=== PATIENT | female | born 1940 | race Caucasian/White ===

== ENCOUNTER → 2019-04-26 | Outpatient (CLI) | payer MEDICARE, OTHER ==
[~2019-04-26] MED LIST: ALBUTEROL SULFATE 0.083% 2.5 MG/3 ML INH IH ONE
== END | disposition home or self-care (01) ==
LOC: RESP 12:53
PROVIDERS: ATTEND Internal Medicine
DX: J44.9 Chronic obstructive pulmonary disease, unspecified (principal); J45.909 Unspecified asthma, uncomplicated
CPT/HCPCS: 94060; 94727; 94729

== ENCOUNTER → 2020-05-16 | Outpatient (CLI) | payer OTHER | END | disposition home or self-care (01) | LOC: RAH 13:01 | PROVIDERS: ATTEND Family Medicine | DX: M79.605 Pain in left leg (principal); S80.02XD Contusion of left knee, subsequent encounter; X58.XXXD Exposure to other specified factors, subsequent encounter | CPT/HCPCS: 93971 ==

== ENCOUNTER 2021-04-10 08:19 | Day surgery (SDC) | payer OTHER ==
[2021-04-07 09:40] VITALS: BP 165/91
[2021-04-07 09:54] LABS: BASOPHILS % (AUTO) 0.8 % (0.0-5.0); EOSINOPHILS % (AUTO) 1.8 % (0.0-8.0); HEMATOCRIT 40.1 % (36-48); LYMPHOCYTES % (AUTO) 19.6 % (21.0-51.0); MEAN CORPUSCULAR HEMOGLOBIN 29.6 pg (27.0-33.0); MEAN CORPUSCULAR HGB CONC 32.2 g/dL (32.0-36.0); NEUTROPHILS % (AUTO) 64.6 % (40.0-77.0); PLATELET COUNT (AUTO) 250 K/uL (130-400); RED BLOOD CELL COUNT(AUTO) 4.36 MIL/uL (4.00-5.50); RED CELL DISTRIBUTION WIDTH 12.7 % (11.0-15.5); WHITE BLOOD COUNT (AUTO) 4.9 K/uL (4.8-10.8)
[2021-04-07 10:12] LABS: CREATININE 0.9 mg/dL (0.5-1.5); POTASSIUM 4.3 mmol/L (3.5-5.1)
[~2021-04-10] VITALS: Ht 160 cm; Wt 77.9 kg
[2021-04-10] VITALS (16 sets, daily range): BP systolic 133–210; BP diastolic 57–106
[~2021-04-10 08:19] MED LIST changes: -ALBUTEROL SULFATE 0.083% 2.5 MG/3 ML INH IH ONE; +CROM10DR2 OP; +FURO20TA4 PO; +HYDR25TA PO; +LEVO100T12 PO; +METO-408 PO; +MULT-1203 PO; +OLME40TA18 PO; +OMEP20CA12 PO; +SERT-439 PO
[2021-04-10] MEDS ORDERED: LACTATED RINGERS 1000ML 1,000 ML IV ONE (09:02)
[2021-04-10] MEDS: CEFAZOLIN SODIUM 1 GM VIAL ONE ×2 (10:10→12:15)
[2021-04-10] MEDS ORDERED: LIDOCAINE PF 100MG/5ML (2%) SYRINGE 5ML ONE (11:09)
[2021-04-10] MEDS ORDERED: ROCURONIUM 10MG/1ML SYR 10 MG/ML ML ONE (11:10)
[2021-04-10] MEDS ORDERED: ONDANSETRON 4MG INJ ONE (11:10)
[2021-04-10] MEDS ORDERED: PROPOFOL 10 MG/ML 20ML VIAL IV ONE (11:10)
[2021-04-10] MEDS ORDERED: FENTANYL CITRATE PF 50 MCG/1 ML 2ML VIAL ONE ×3 (11:10→13:14)
[2021-04-10] MEDS ORDERED: NEOSTIGMINE 5MG/5ML SYR IV ONE (13:06)
[2021-04-10] MEDS ORDERED: GLYCOPYRROLATE 1 MG/5 ML SYRINGE ONE (13:06)
[2021-04-10] MEDS ORDERED: KETOROLAC 30MG VIAL (30MG/ML) ONE (13:09)
[2021-04-10] MEDS ORDERED: ACET1TAB25 PO (13:27)
[2021-04-10] MEDS ORDERED: CEPH500B PO (13:27)
[2021-04-10] MEDS ORDERED: HYDRALAZINE 20MG/ML VIAL ONE (13:48)
[2021-04-10] MEDS ORDERED: MEPERIDINE-PF 25 MG/ML SYG ONE (13:58)
== END 2021-04-10 15:10 | disposition home or self-care (01) ==
LOC: DAH 08:19
PROVIDERS: ATTEND Orthopaedic Surgery
DX: S83.272A Complex tear of lateral meniscus, current injury, left knee, initial encounter (principal); Z20.822 Contact with and (suspected) exposure to COVID-19; S83.522A Sprain of posterior cruciate ligament of left knee, initial encounter; M22.42 Chondromalacia patellae, left knee; I10 Essential (primary) hypertension; J45.909 Unspecified asthma, uncomplicated; K21.9 Gastro-esophageal reflux disease without esophagitis; E07.9 Disorder of thyroid, unspecified; E66.01 Morbid (severe) obesity due to excess calories; Z90.710 Acquired absence of both cervix and uterus; Z98.890 Other specified postprocedural states; Z87.891 Personal history of nicotine dependence; Z79.890 Hormone replacement therapy
CPT/HCPCS: 29881; 36415; 80048; 85025; 87635; 93005; A4213; A4215; A4221; A4222; A4223; A4606; A4649 ×2; A4663; A4930 ×2; A5120; A6223; C9803; J0360; J0690; J1885; J2001; J2175; J2405; J2704; J2710; J3010 ×3; J3490; J7120 ×2

== ENCOUNTER → 2022-02-25 | Outpatient (CLI) | payer OTHER ==
[~2022-02-25] MED LIST changes: +ACET-2079 PO; +CEPH500B PO
== END | disposition home or self-care (01) ==
LOC: RAH 08:42
PROVIDERS: ATTEND Family Medicine
DX: M79.604 Pain in right leg (principal); R79.89 Other specified abnormal findings of blood chemistry
CPT/HCPCS: 93971

== ENCOUNTER 2022-03-18 14:27 | Emergency (ER) | payer OTHER ==
[~2022-03-18] VITALS: Ht 160 cm; Wt 79.4 kg
[2022-03-18 14:33] VITALS: BP 143/83
[2022-03-18] MEDS ORDERED: NAPR375T6 PO (15:50)
[2022-03-18] MEDS ORDERED: DICL20GE TP (15:50)
== END 2022-03-18 16:08 | disposition home or self-care (01) ==
LOC: EDH 14:27
DX: M17.11 Unilateral primary osteoarthritis, right knee (principal); I10 Essential (primary) hypertension; E03.9 Hypothyroidism, unspecified; Z79.899 Other long term (current) drug therapy; Z98.890 Other specified postprocedural states
CPT/HCPCS: 29505

== ENCOUNTER 2022-04-22 10:39 | Observation (INO) | payer OTHER ==
[2022-04-21 12:10] LABS: BASOPHILS % (AUTO) 0.8 % (0.0-5.0); HEMATOCRIT 40.6 % (36-48); LYMPHOCYTES % (AUTO) 13.4 % (21.0-51.0); MEAN CORPUSCULAR HEMOGLOBIN 29.5 pg (27.0-33.0); MEAN CORPUSCULAR HGB CONC 33.3 g/dL (32.0-36.0); MEAN CORPUSCULAR VOLUME 88.8 fL (79-99); MONOCYTES % (AUTO) 11.4 % (3.0-13.0); PLATELET COUNT (AUTO) 328 K/uL (130-400); RED BLOOD CELL COUNT(AUTO) 4.57 MIL/uL (4.00-5.50); RED CELL DISTRIBUTION WIDTH 12.9 % (11.0-15.5); WHITE BLOOD COUNT (AUTO) 7.8 K/uL (4.8-10.8)
[2022-04-21 12:17] LABS: APPEARANCE,URINE SL CLOUDY (CLEAR); BILIRUBIN,URINE NEGATIVE (NEGATIVE); COLOR,URINE YELLOW (YELLOW); GLUCOSE, URINE (UA) NEGATIVE (NEGATIVE); KETONES,URINE NEGATIVE (NEGATIVE); LEUKOCYTE ESTERASE ,URINE SMALL (NEGATIVE); NITRATE,URINE NEGATIVE (NEGATIVE); OCCULT BLOOD,URINE SMALL (NEGATIVE); PROTEIN,URINE NEGATIVE (NEGATIVE); UROBILINOGEN,URINE 0.2 mg/dL (0.2-1.0)
[2022-04-21 12:20] LABS: CREATININE 0.9 mg/dL (0.5-1.5)
[2022-04-21 12:21] LABS: INR 0.97 (0.85-1.15); PROTHROMBIN TIME 10.6 SEC (9.6-11.6)
[2022-04-21 12:22] LABS: BACTERIA,URINE Few /HPF (None Seen); SQUAMOUS EPITHELIAL CELL,UR Few /HPF (0-2); TRANSITIONAL EPI CELLS,URINE Few /HPF (None Seen); WBC,URINE 0-1 /HPF (0-1)
[2022-04-21 12:53] LABS: POTASSIUM 3.4 mmol/L (3.5-5.1)
[2022-04-21 13:22] VITALS: BP 145/85
[~2022-04-22] VITALS: Ht 160 cm; Wt 75.3 kg
[2022-04-22] VITALS (23 sets, daily range): BP systolic 120–167; BP diastolic 58–92
[~2022-04-22 10:39] MED LIST changes: -ACET-2079 PO; +CEFAZOLIN SODIUM 1 GM VIAL IVP SCH; -CEPH500B PO; -CROM10DR2 OP; +IBUP-2784 PO; +LACTATED RINGERS 1000ML 1,000 ML IV ONE; +TRAM50TA4 PO; +albuterol IH
[2022-04-22] MEDS ORDERED: CEFAZOLIN SODIUM 1 GM VIAL ONE (13:05)
[2022-04-22] MEDS ORDERED: FENTANYL CITRATE PF 50 MCG/1 ML 2ML VIAL ONE ×2 (13:18→13:28)
[2022-04-22] MEDS ORDERED: ONDANSETRON 4MG INJ ONE (13:18)
[2022-04-22] MEDS ORDERED: PROPOFOL 10 MG/ML 20ML VIAL IV ONE (13:18)
[2022-04-22] MEDS ORDERED: MIDAZOLAM HCL 1 MG/ML 2ML VIAL ONE (13:18)
[2022-04-22] MEDS ORDERED: ROCURONIUM 10MG/1ML SYR 10 MG/ML ML ONE (13:20)
[2022-04-22] MEDS ORDERED: ROPIVACAINE 0.5% 5MG/ML 30ML IJ ONE (13:29)
[2022-04-22] MEDS ORDERED: DEXAMETHASONE SOD PHOSPHATE 10MG/ML 1ML VIAL ONE (13:40)
[2022-04-22] MEDS ORDERED: EPHEDRINE SULFATE 50 MG/ML AMPULE ONE (13:53)
[2022-04-22] MEDS ORDERED: TRANEXAMIC ACID 1000MG/10ML ONE (14:33)
[2022-04-22] MEDS ORDERED: HYDRALAZINE 20MG/ML VIAL ONE (15:00)
[2022-04-22] MEDS ORDERED: ONDANSETRON 4MG INJ IVP PRN (16:00)
[2022-04-22] MEDS ORDERED: KCL 20 MEQ ERTAB PO PRN (16:00)
[2022-04-22] MEDS ORDERED: FERROUS FUMARATE 324 MG TABLET PO PRN (16:00)
[2022-04-22] MEDS ORDERED: KETOROLAC 15MG/ML VIAL (15MG/ML) IV PRN (16:00)
[2022-04-22] MEDS ORDERED: DiphenhydrAMINE HCL 50 MG/ML VIAL IVP PRN (16:00)
[2022-04-22] MEDS ORDERED: POTASSIUM CHLORIDE 20MEQ/100ML 100 ML IV PRN (16:00)
[2022-04-22] MEDS ORDERED: LIDOCAINE HCL-MPF 1% 2ML VIAL IV PRN (16:00)
[2022-04-22] MEDS ORDERED: CALCIUM CARB 500MG PO PRN (16:00)
[2022-04-22] MEDS ORDERED: POTASSIUM CHLORIDE 10% ELIXIR 20 MEQ/15 ML UDCUP PO PRN (16:00)
[2022-04-22] MEDS ORDERED: NEOSTIGMINE 5MG/5ML SYR IV ONE (16:07)
[2022-04-22] MEDS ORDERED: GLYCOPYRROLATE 1 MG/5 ML SYRINGE ONE (16:07)
[2022-04-22] MEDS: 0.9%NACL 1000ML 1,000 ML IV SCH ×2 (16:18→18:30)
[2022-04-22] MEDS ORDERED: MEPERIDINE-PF 25 MG/ML SYG ONE ×2 (16:24→16:59)
[2022-04-22] MEDS: OXYCODONE HCL 5 MG TAB PO PRN ×2 (18:11→23:38)
[2022-04-22] MEDS: ACETAMINOPHEN 500 MG TABLET PO SCH ×2 (18:16→23:38)
[2022-04-22] MEDS ORDERED: ALBUTEROL IH PRN (19:30)
[2022-04-22] MEDS: PHARMACY COMMUNICATION MISC SCH (20:00)
[2022-04-22] MEDS: CEFAZOLIN SODIUM 1 GM VIAL IVP SCH (20:38)
[2022-04-22] MEDS: CELECOXIB 200 MG CAP PO SCH (20:39)
[2022-04-22] MEDS: ASPIRIN 81 MG EC TAB PO SCH (20:39)
[2022-04-22] MEDS: FUROSEMIDE 20 MG TABLET PO SCH (21:00)
[2022-04-23] MEDS: 0.9%NACL 1000ML 1,000 ML IV SCH ×2 (00:41→12:00)
[2022-04-23] MEDS: PHARMACY COMMUNICATION MISC SCH ×7 (04:00→23:05)
[2022-04-23] MEDS ORDERED: LEVOTHYROXINE 100 MCG TABLET ONE (05:06)
[2022-04-23] MEDS: CEFAZOLIN SODIUM 1 GM VIAL IVP SCH (05:09)
[2022-04-23] MEDS: LEVOTHYROXINE 100 MCG TABLET PO SCH (05:33)
[2022-04-23 06:00] LABS: HEMATOCRIT 36.3 % (36-48); MEAN CORPUSCULAR HEMOGLOBIN 30.4 pg (27.0-33.0); MEAN CORPUSCULAR HGB CONC 33.3 g/dL (32.0-36.0); MEAN CORPUSCULAR VOLUME 91.2 fL (79-99); RED BLOOD CELL COUNT(AUTO) 3.98 MIL/uL (4.00-5.50); RED CELL DISTRIBUTION WIDTH 12.9 % (11.0-15.5); WHITE BLOOD COUNT (AUTO) 12.8 K/uL (4.8-10.8)
[2022-04-23 06:20] LABS: CREATININE 1.2 mg/dL (0.5-1.5); POTASSIUM 3.7 mmol/L (3.5-5.1)
[2022-04-23] MEDS: CELECOXIB 200 MG CAP PO SCH ×2 (08:14→20:16)
[2022-04-23] MEDS: PANTOPRAZOLE 40 MG TAB DR PO SCH (08:14)
[2022-04-23] MEDS: POLYETHYLENE GLYCOL 3350 17 GM POWD.PACK PO SCH (08:14)
[2022-04-23] MEDS: ASPIRIN 81 MG EC TAB PO SCH ×2 (08:14→20:16)
[2022-04-23] MEDS: OXYCODONE HCL 5 MG TAB PO PRN ×4 (08:14→20:16)
[2022-04-23] MEDS: SERTRALINE HCL 50 MG TABLET PO SCH (08:14)
[2022-04-23 08:36] VITALS: BP 137/58
[2022-04-23] MEDS: ACETAMINOPHEN 500 MG TABLET PO SCH ×3 (08:57→23:08)
[2022-04-23] MEDS: HYDROCHLOROTHIAZIDE 25 MG TABLET PO SCH (08:59)
[2022-04-23] MEDS: FUROSEMIDE 20 MG TABLET PO SCH ×2 (09:00→20:15)
[2022-04-23] MEDS: TRAMADOL HCL 50 MG TABLET PO PRN (10:28)
[2022-04-23] MEDS: Olmesartan Medoxomil 40 MG PO SCH (12:00)
[2022-04-23 12:14] VITALS: BP 116/56
[2022-04-23 15:41] VITALS: BP 107/62
[2022-04-23] MEDS: METOPROLOL SUCCINATE 25 MG TAB.SR.24H PO SCH (16:26)
[2022-04-23 21:03] VITALS: BP 135/66
[2022-04-23 23:14] VITALS: BP 133/66
[2022-04-24] MEDS: PHARMACY COMMUNICATION MISC SCH ×5 (00:30→05:18)
[2022-04-24] MEDS: OXYCODONE HCL 5 MG TAB PO PRN ×3 (03:00→13:50)
[2022-04-24 04:33] VITALS: BP 168/80
[2022-04-24] MEDS: LEVOTHYROXINE 100 MCG TABLET PO SCH (05:16)
[2022-04-24] MEDS: HYDROCHLOROTHIAZIDE 25 MG TABLET PO SCH (07:28)
[2022-04-24] MEDS: POLYETHYLENE GLYCOL 3350 17 GM POWD.PACK PO SCH (07:28)
[2022-04-24] MEDS: ASPIRIN 81 MG EC TAB PO SCH (07:28)
[2022-04-24 08:10] VITALS: BP 132/73
[2022-04-24] MEDS: PANTOPRAZOLE 40 MG TAB DR PO SCH (10:12)
[2022-04-24] MEDS: FUROSEMIDE 20 MG TABLET PO SCH (10:12)
[2022-04-24] MEDS: CELECOXIB 200 MG CAP PO SCH (10:12)
[2022-04-24] MEDS: ACETAMINOPHEN 500 MG TABLET PO SCH (10:22)
[2022-04-24 12:00] VITALS: BP 146/71
[2022-04-24] MEDS: Olmesartan Medoxomil 40 MG PO SCH (12:00)
[2022-04-24] MEDS: METOPROLOL SUCCINATE 25 MG TAB.SR.24H PO SCH (12:25)
[2022-04-24] MEDS: SERTRALINE HCL 50 MG TABLET PO SCH (12:25)
[2022-04-24] MEDS: TRAMADOL HCL 50 MG TABLET PO PRN (12:26)
[2022-04-24] MEDS ORDERED: HYDR-4060 PO (14:30)
[2022-04-24] MEDS ORDERED: AEC81 PO (14:30)
[2022-04-24] MEDS ORDERED: BISACODYL 10 MG SUPP.RECT RC ONE (14:56)
[2022-04-25] MEDS ORDERED: BISACODYL 10 MG SUPP.RECT RC PRN (16:00)
== END 2022-04-24 15:25 | disposition home health service (06) ==
LOC: DAH 10:39 → DAHIP 10:40 → 4BH 17:57
PROVIDERS: ADMIT Orthopaedic Surgery; ATTEND Orthopaedic Surgery
DX: M17.11 Unilateral primary osteoarthritis, right knee (principal); Z20.822 Contact with and (suspected) exposure to COVID-19; I10 Essential (primary) hypertension; K21.9 Gastro-esophageal reflux disease without esophagitis; E03.9 Hypothyroidism, unspecified; M25.561 Pain in right knee; G89.29 Other chronic pain; R26.89 Other abnormalities of gait and mobility; Z87.891 Personal history of nicotine dependence; Z90.710 Acquired absence of both cervix and uterus; Z79.82 Long term (current) use of aspirin; Z91.81 History of falling; Z79.899 Other long term (current) drug therapy; Z98.890 Other specified postprocedural states
CPT/HCPCS: 80048 ×2; 85025; 85610; 87088; 87426; 81001; 36415 ×2; 93005; 87641; 27447; 96374; 76942; 64447; 96376; 96375; 85027; 97161; 97039 ×4; 97116 ×4; 97530 ×4; G0378 ×43; A4663; J7030; J7120 ×2; J3010 ×2; J0690 ×3; J3490 ×3; J1100; J2710; J0360; J2250; J2704; J2405; J2175 ×2; J2795; A9272; A4649 ×4; A4930; C1776; A4215; A4223; A4222; A4221; J1885

== ENCOUNTER → 2022-12-28 | Outpatient (CLI) | payer OTHER ==
[~2022-12-28] MED LIST changes: +AEC81 PO; -CEFAZOLIN SODIUM 1 GM VIAL IVP SCH; +HYDR-4060 PO; -IBUP-2784 PO; -LACTATED RINGERS 1000ML 1,000 ML IV ONE; -TRAM50TA4 PO
== END | disposition home or self-care (01) ==
LOC: RAH 14:20
PROVIDERS: ATTEND Orthopaedic Surgery
DX: M17.12 Unilateral primary osteoarthritis, left knee (principal); M85.88 Other specified disorders of bone density and structure, other site; M25.462 Effusion, left knee
CPT/HCPCS: 73700

== ENCOUNTER 2023-02-16 06:02 | Observation (INO) | payer OTHER ==
[2023-02-10 11:54] LABS: INR 0.94 (0.85-1.15); PROTHROMBIN TIME 10.3 SEC (9.6-11.6)
[~2023-02-16] VITALS: Ht 160 cm; Wt 69.6 kg
[2023-02-16] VITALS (29 sets, daily range): BP systolic 114–157; BP diastolic 49–81
[~2023-02-16 06:02] MED LIST changes: -AEC81 PO; -HYDR-4060 PO
[2023-02-16] MEDS ORDERED: CEFAZOLIN SODIUM 2 GM VIAL ONE (06:54)
[2023-02-16] MEDS ORDERED: LACTATED RINGERS 1000ML 1,000 ML IV ONE (06:55)
[2023-02-16] MEDS ORDERED: LIDOCAINE PF 100MG/5ML (2%) SYRINGE 5ML ONE (08:15)
[2023-02-16] MEDS ORDERED: PROPOFOL 10 MG/ML 20ML VIAL IV ONE (08:15)
[2023-02-16] MEDS ORDERED: SUCCINYLCHOLINE CHLORIDE 20 MG/ML 10 ML VIAL ONE (08:15)
[2023-02-16] MEDS ORDERED: ONDANSETRON 4MG INJ ONE (08:15)
[2023-02-16] MEDS ORDERED: NEOSTIGMINE 5MG/5ML SYR IV ONE (08:15)
[2023-02-16] MEDS ORDERED: MIDAZOLAM HCL 1 MG/ML 2ML VIAL ONE (08:15)
[2023-02-16] MEDS ORDERED: GLYCOPYRROLATE 1 MG/5 ML SYRINGE ONE (08:15)
[2023-02-16] MEDS ORDERED: ROCURONIUM 10MG/1ML SYR 10 MG/ML ML ONE (08:15)
[2023-02-16] MEDS ORDERED: DEXAMETHASONE SOD PHOSPHATE 10MG/ML 1ML VIAL ONE (08:15)
[2023-02-16] MEDS ORDERED: FENTANYL CITRATE PF 50 MCG/1 ML 2ML VIAL ONE (08:15)
[2023-02-16] MEDS ORDERED: HYDROCODONE/ACETAMINOPHEN 10/325 MG TAB PO PRN (09:30)
[2023-02-16] MEDS ORDERED: POTASSIUM CHLORIDE 10% ELIXIR 20 MEQ/15 ML UDCUP PO PRN (09:30)
[2023-02-16] MEDS ORDERED: POTASSIUM CHLORIDE 20MEQ/100ML 100 ML IV PRN (09:30)
[2023-02-16] MEDS: 0.9%NACL 1000ML 1,000 ML IV SCH ×2 (09:30→19:30)
[2023-02-16] MEDS ORDERED: ONDANSETRON 4MG INJ IVP PRN (09:30)
[2023-02-16] MEDS ORDERED: ALBUTEROL INHALER 90MCG/INH IH PRN (09:30)
[2023-02-16] MEDS ORDERED: MORPHINE 4 MG SYG IVP PRN (09:30)
[2023-02-16] MEDS ORDERED: TRANEXAMIC ACID 1000MG/10ML ONE (09:37)
[2023-02-16] MEDS ORDERED: KETOROLAC 30MG VIAL (30MG/ML) ONE (11:23)
[2023-02-16] MEDS: ACETAMINOPHEN 1,000 MG/100 ML VIAL IV SCH ×3 (11:49→20:02)
[2023-02-16] MEDS: METOPROLOL SUCCINATE 25 MG TAB.SR.24H PO SCH (12:00)
[2023-02-16] MEDS: TRAMADOL HCL 50 MG TABLET PO SCH ×3 (12:00→23:55)
[2023-02-16] MEDS: LOSARTAN 100 MG TABLET PO SCH (12:00)
[2023-02-16] MEDS: FUROSEMIDE 20 MG TABLET PO SCH ×2 (12:00→17:00)
[2023-02-16] MEDS ORDERED: MEPERIDINE-PF 25 MG/ML SYG ONE (12:08)
[2023-02-16] MEDS: IBUPROFEN 800MG + NS 250ML IV SCH ×2 (13:38→20:02)
[2023-02-16] MEDS: CEFAZOLIN SODIUM 1 GM VIAL IVPB SCH ×2 (16:59→20:02)
[2023-02-16] MEDS ORDERED: BENZOCAINE/MENTH/CETYLPYRD CL 1 EACH LOZENGE MM PRN (17:00)
[2023-02-17] VITALS: BP 114/58
[2023-02-17 04:00] VITALS: BP 149/84
[2023-02-17 05:05] LABS: HEMATOCRIT 32.1 % (36-48); MEAN CORPUSCULAR HEMOGLOBIN 31.3 pg (27.0-33.0); MEAN CORPUSCULAR HGB CONC 32.7 g/dL (32.0-36.0); MEAN CORPUSCULAR VOLUME 95.8 fL (79-99); RED BLOOD CELL COUNT(AUTO) 3.35 MIL/uL (4.00-5.50); RED CELL DISTRIBUTION WIDTH 12.7 % (11.0-15.5); WHITE BLOOD COUNT (AUTO) 5.5 K/uL (4.8-10.8)
[2023-02-17 05:17] LABS: CREATININE 1.2 mg/dL (0.5-1.5); POTASSIUM 3.2 mmol/L (3.5-5.1)
[2023-02-17] MEDS: IBUPROFEN 800MG + NS 250ML IV SCH (05:17)
[2023-02-17] MEDS: TRAMADOL HCL 50 MG TABLET PO SCH ×3 (05:17→17:58)
[2023-02-17] MEDS: 0.9%NACL 1000ML 1,000 ML IV SCH (05:23)
[2023-02-17] MEDS: LEVOTHYROXINE 100 MCG TABLET PO SCH (05:38)
[2023-02-17 08:00] VITALS: BP 142/91
[2023-02-17] MEDS: POLYETHYLENE GLYCOL 3350 17 GM POWD.PACK PO SCH (08:46)
[2023-02-17] MEDS: HYDROCODONE/ACETAMINOPHEN 5/325 MG TAB PO PRN ×2 (08:47→16:24)
[2023-02-17] MEDS: SERTRALINE HCL 50 MG TABLET PO SCH (08:47)
[2023-02-17] MEDS: ASPIRIN 81 MG EC TAB PO SCH ×2 (08:47→21:19)
[2023-02-17] MEDS: HYDROCHLOROTHIAZIDE 25 MG TABLET PO SCH (08:47)
[2023-02-17] MEDS: OMEPRAZOLE 20 MG PO SCH (08:49)
[2023-02-17] MEDS: METOPROLOL SUCCINATE 25 MG TAB.SR.24H PO SCH (11:53)
[2023-02-17] MEDS: FUROSEMIDE 20 MG TABLET PO SCH ×2 (11:53→16:24)
[2023-02-17] MEDS: LOSARTAN 100 MG TABLET PO SCH (11:53)
[2023-02-17 12:00] VITALS: BP 156/64
[2023-02-17] MEDS: KCL 20 MEQ ERTAB PO PRN ×2 (12:03→15:58)
[2023-02-17 16:07] VITALS: BP 151/89
[2023-02-17 19:00] VITALS: BP 158/78
[2023-02-18] VITALS: BP 156/96
[2023-02-18] MEDS: TRAMADOL HCL 50 MG TABLET PO SCH ×3 (00:08→12:18)
[2023-02-18 03:44] VITALS: BP 182/100
[2023-02-18 04:00] VITALS: BP 169/61
[2023-02-18] MEDS: LEVOTHYROXINE 100 MCG TABLET PO SCH (06:46)
[2023-02-18] MEDS: KCL 20 MEQ ERTAB PO PRN (06:49)
[2023-02-18 07:41] LABS: BASOPHILS % (AUTO) 0.3 % (0.0-5.0); EOSINOPHILS % (AUTO) 2.1 % (0.0-8.0); HEMATOCRIT 33.3 % (36-48); LYMPHOCYTES % (AUTO) 9.9 % (21.0-51.0); MEAN CORPUSCULAR HEMOGLOBIN 31.1 pg (27.0-33.0); MEAN CORPUSCULAR HGB CONC 32.1 g/dL (32.0-36.0); MEAN CORPUSCULAR VOLUME 96.8 fL (79-99); MONOCYTES % (AUTO) 16.6 % (3.0-13.0); NEUTROPHILS % (AUTO) 70.6 % (40.0-77.0); PLATELET COUNT (AUTO) 199 K/uL (130-400); RED BLOOD CELL COUNT(AUTO) 3.44 MIL/uL (4.00-5.50); RED CELL DISTRIBUTION WIDTH 12.4 % (11.0-15.5); WHITE BLOOD COUNT (AUTO) 7.6 K/uL (4.8-10.8)
[2023-02-18 07:57] LABS: ALBUMIN 2.8 g/dL (3.5-5.0); CREATININE 0.8 mg/dL (0.5-1.5); POTASSIUM 3.3 mmol/L (3.5-5.1); TOTAL PROTEIN, SERUM 6.3 g/dL (6.0-8.3)
[2023-02-18 08:00] VITALS: BP 158/83
[2023-02-18] MEDS: OMEPRAZOLE 20 MG PO SCH (09:00)
[2023-02-18] MEDS: HYDROCHLOROTHIAZIDE 25 MG TABLET PO SCH (09:09)
[2023-02-18] MEDS: ASPIRIN 81 MG EC TAB PO SCH (09:10)
[2023-02-18] MEDS: SERTRALINE HCL 50 MG TABLET PO SCH (09:10)
[2023-02-18] MEDS: POLYETHYLENE GLYCOL 3350 17 GM POWD.PACK PO SCH (09:10)
[2023-02-18] MEDS: HYDROCODONE/ACETAMINOPHEN 5/325 MG TAB PO PRN (09:11)
[2023-02-18 12:00] VITALS: BP 156/62
[2023-02-18] MEDS: METOPROLOL SUCCINATE 25 MG TAB.SR.24H PO SCH (12:18)
[2023-02-18] MEDS: FUROSEMIDE 20 MG TABLET PO SCH (12:18)
[2023-02-18] MEDS: LOSARTAN 100 MG TABLET PO SCH (12:18)
[2023-02-19] MEDS ORDERED: BISACODYL 10 MG SUPP.RECT RC PRN (09:30)
== END 2023-02-18 16:25 ==
LOC: DAH 06:02 → DAHIP 06:03 → 4BH 14:15
PROVIDERS: ADMIT Orthopaedic Surgery; ATTEND Orthopaedic Surgery
DX: M17.12 Unilateral primary osteoarthritis, left knee (principal); Z20.822 Contact with and (suspected) exposure to COVID-19; D62 Acute posthemorrhagic anemia; Z90.710 Acquired absence of both cervix and uterus; Z79.899 Other long term (current) drug therapy; Z98.890 Other specified postprocedural states; Z79.82 Long term (current) use of aspirin
CPT/HCPCS: 85610; 85730; 87426; 36415 ×3; 87641; 27447; 96365; 96366 ×3; 96367; 96368; 64447; 80048; 85027; 97161; 97039 ×4; 97116 ×3; 97530; 80053; 85025; A6260; C1776 ×4; G0378 ×49; A4663; J7030; J7120; J3010; J0690 ×3; J3490 ×2; J1100; J2710; J0330; J2001; J2250; J2704; J2405; J1885; J2175; J1741 ×3; A6223; G0168; A4649 ×4; A6212; A4215; A4223; A4222; A4221; J2270

== ENCOUNTER → 2024-03-26 | Outpatient (CLI) | payer OTHER ==
[2024-03-26 22:03] VITALS: PULSE 70; RESP 14
[2024-03-26 23:00] VITALS: PULSE 74; RESP 16
[2024-03-26 23:30] VITALS: PULSE 70; RESP 14
[2024-03-27] VITALS (11 sets, daily range): PULSE 60–68; RESP 12–16
== END | disposition home or self-care (01) ==
LOC: SLP 20:05
PROVIDERS: ATTEND Family Medicine
DX: G47.33 Obstructive sleep apnea (adult) (pediatric) (principal)
CPT/HCPCS: 95811